=== PATIENT | male | born 1945 | race Caucasian/White ===

== ENCOUNTER 2025-05-30 18:53 | Inpatient (IN) | payer OTHER ==
[~2025-05-30] VITALS: Ht 172.7 cm; Wt 56.2 kg
[2025-05-30 19:16] VITALS: BP 140/86
[2025-05-30 19:22] LABS: MEAN CELL VOLUME 94.5 fl (80.0-94.0); MEAN CORPUSCULAR HGB 28.8 pg (27.0-31.0); MEAN PLATELET VOLUME 8.8 fl (9.6-12.3); NUCLEATED RED BLOOD CELL 0.0 % (0.0-0.0); NUCLEATED RED BLOOD CELL 0.0 10*3/uL (0.0-0.0); PLATELET COUNT AUTOMATED 190 10*3/uL (130-400); RED CELL DISTRI WIDTH 13.7 % (0-14.5)
[2025-05-30 19:23] LABS: MANUAL DIFF REFLEX YES
[2025-05-30 19:45] LABS: PLATELET SUFFICIENCY NORMAL (NORMAL)
[2025-05-30 19:47] LABS: BUN 17 mg/dl (9-23); SGPT/ALT 15 U/L (5-49)
[2025-05-30 19:57] LABS: ETHYL ALCOHOL < 3.0 mg/dl (<3)
[2025-05-30 22:19] LABS: BILIRUBIN Negative (Negative); BLOOD 3+ (Negative); CLARITY Clear (Clear); COLOR Yellow (Yellow); KETONE Negative (Negative); LEUKO ESTERASE Negative (Negative); NITRITE Negative (Negative); PH 6.5 (4.5-8.0); SPECIFIC GRAVITY 1.010 (1.001-1.030); UROBILINOGEN 1.0 E.U./dl (0.0-1.0)
[2025-05-30 22:26] LABS: URINE AMPHETAMINES Negative (1000ng/ml); URINE BARBITURATES Negative (200ng/ml); URINE BENZODIAZEPINES Negative (200ng/ml); URINE CANNABINOIDS (THC) Negative (50ng/ml); URINE COCAINE Negative (300ng/ml); URINE METHADONE Negative (300ng/ml); URINE OPIATES Negative (300ng/ml); URINE PHENCYCLIDINE Negative (25ng/ml)
[2025-05-30 22:37] LABS: BACTERIA TRACE; RBC TNTC rbc/hpf (0-2)
[2025-05-30] MEDS ORDERED: MG-AL HYDROXIDE/SIMETICONE 30 ML UDC PO PRN (22:55)
[2025-05-30] MEDS ORDERED: ACETAMINOPHEN 325 MG TAB PO PRN (22:55)
[2025-05-30] MEDS ORDERED: Menthol/Zinc Oxide 4 GM THIN T PRN (23:15)
[2025-05-30] MEDS ORDERED: FENOFIBRATE145 M1 PO (23:19)
[2025-05-30] MEDS ORDERED: IRON325 M1 PO (23:20)
[2025-05-30] MEDS ORDERED: SIMVASTATIN20 MG PO (23:21)
[2025-05-30] MEDS ORDERED: TAMSULOSIN HCL0.4 MG PO (23:21)
[2025-05-30] MEDS ORDERED: VITAMIN B-1100 M1 PO (23:22)
[2025-05-30] MEDS ORDERED: DEPAKOTE250 MG PO (23:24)
[2025-05-30] MEDS ORDERED: NAMENDA-5 PO (23:24)
[2025-05-30] MEDS ORDERED: REMERON15 M2 PO (23:25)
[2025-05-30] MEDS ORDERED: RISPERDAL1 M1 PO (23:26)
[2025-05-30] MEDS ORDERED: STERILE WATER IM (23:28)
[2025-05-30] MEDS ORDERED: GEODON20 MG/1 ML IM (23:29)
[2025-05-30] MEDS ORDERED: VISTARIL25 MG PO (23:29)
[2025-05-30] MEDS ORDERED: VISTARIL25 MG IM (23:32)
[2025-05-30] MEDS ORDERED: LORazepam 1 MG TAB PO PRN (23:40)
[2025-05-31 06:48] LABS: MEAN CELL VOLUME 93.1 fl (80.0-94.0); MEAN CORPUSCULAR HGB 28.5 pg (27.0-31.0); MEAN PLATELET VOLUME 9.4 fl (9.6-12.3); NUCLEATED RED BLOOD CELL 0.0 % (0.0-0.0); NUCLEATED RED BLOOD CELL 0.0 10*3/uL (0.0-0.0); PLATELET COUNT AUTOMATED 205 10*3/uL (130-400); RED CELL DISTRI WIDTH 13.6 % (0-14.5)
[2025-05-31 06:53] LABS: BUN 14 mg/dl (9-23); LDL CHOLESTEROL 56 mg/dL (9-159); SGPT/ALT 14 U/L (5-49)
[2025-05-31 06:58] LABS: MANUAL DIFF REFLEX YES
[2025-05-31 07:16] LABS: PLATELET SUFFICIENCY NORMAL (NORMAL)
[2025-05-31 08:05] LABS: VITAMIN D, 25-HYDROXY 66.3 ng/mL (30-100)
[2025-05-31] MEDS ORDERED: FERROUS SULFATE 325 MG TAB PO SCH (09:00)
[2025-05-31] MEDS ORDERED: Memantine Hydrochloride 5 MG TAB PO SCH (09:00)
[2025-05-31] MEDS ORDERED: Thiamine 100 MG TAB PO SCH (09:00)
[2025-05-31] MEDS ORDERED: FENOFIBRATE 145 MG TAB PO SCH (09:00)
[2025-05-31] MEDS ORDERED: DIVALPROEX (DR) 250 MG TAB PO SCH (09:00)
[2025-05-31] MEDS ORDERED: risperiDONE 1 MG TAB PO SCH (14:00)
[2025-05-31] MEDS ORDERED: Mirtazapine 15 MG TAB PO SCH (21:00)
[2025-05-31] MEDS ORDERED: SIMVASTATIN 20 MG TAB PO SCH (22:00)
[2025-06-01 23:05] VITALS: BP 124/95
[2025-06-02] MEDS ORDERED: Albuterol Sulf/Ipratropium 3 ML VIAL NEB ONE (02:05)
[2025-06-02 03:01] LABS: MEAN CELL VOLUME 91.1 fl (80.0-94.0); MEAN CORPUSCULAR HGB 28.8 pg (27.0-31.0); MEAN PLATELET VOLUME 9.2 fl (9.6-12.3); NUCLEATED RED BLOOD CELL 0.0 % (0.0-0.0); NUCLEATED RED BLOOD CELL 0.0 10*3/uL (0.0-0.0); PLATELET COUNT AUTOMATED 190 10*3/uL (130-400); RED CELL DISTRI WIDTH 13.4 % (0-14.5)
[2025-06-02 03:12] LABS: MANUAL DIFF REFLEX YES
[2025-06-02 03:19] LABS: BUN 19 mg/dl (9-23)
[2025-06-02 03:37] LABS: PLATELET SUFFICIENCY NORMAL (NORMAL); STOMATOCYTE FEW
[2025-06-02 06:31] VITALS: BP 125/97
[2025-06-02 09:00] LABS: ABG BASE EXCESS 2.6 mmol/L (-2.0-3.0); ABG O2 SATURATION 94.7 % (94.0-98.0); ARTERIAL BLOOD GAS PH 7.448 (7.350-7.450); ARTERIAL BLOOD GAS PO2 68.3 mmHg (83.0-108.0)
== END 2025-06-02 14:10 | disposition short-term general hospital (02) | DRG 885 ==
LOC: ED 18:53 → 3N 21:53
PROVIDERS: Counselor Professional; Internal Medicine; Student in an Organized Health Care Education/Training Program; ADMIT Psychiatry & Neurology Psychiatry; ATTEND Psychiatry & Neurology Psychiatry
PROC: GZHZZZZ Group Psychotherapy (ICD-10-PCS; principal; 2025-05-31)
PROC: GZ56ZZZ Individual Psychotherapy, Supportive (ICD-10-PCS; 2025-05-31)
DX: F23 Brief psychotic disorder (principal); F05 Delirium due to known physiological condition; J18.9 Pneumonia, unspecified organism; F03.B18 Unspecified dementia, moderate, with other behavioral disturbance; D53.9 Nutritional anemia, unspecified; R91.1 Solitary pulmonary nodule; E78.2 Mixed hyperlipidemia; S00.81XA Abrasion of other part of head, initial encounter; N40.0 Benign prostatic hyperplasia without lower urinary tract symptoms; F32.9 Major depressive disorder, single episode, unspecified; F17.210 Nicotine dependence, cigarettes, uncomplicated; Z82.49 Family history of ischemic heart disease and other diseases of the circulatory system; Z79.899 Other long term (current) drug therapy; Z88.8 Allergy status to other drugs, medicaments and biological substances; Z91.09 Other allergy status, other than to drugs and biological substances; Z98.52 Vasectomy status; Z79.01 Long term (current) use of anticoagulants; Z79.2 Long term (current) use of antibiotics; X58.XXXA Exposure to other specified factors, initial encounter; Y93.89 Activity, other specified; Y92.89 Other specified places as the place of occurrence of the external cause; Y99.8 Other external cause status

== ENCOUNTER 2025-06-11 10:30 | Inpatient (IN) | payer OTHER ==
[~2025-06-11] VITALS: Ht 172.7 cm; Wt 49.0 kg
[2025-06-11] VITALS (19 sets, daily range): BP systolic 65–123; BP diastolic 43–70
[~2025-06-11 10:30] MED LIST: AMOX-CLAV 875-1 EACH PO; DEPAKOTE SPRIN125 MG PO; DEPAKOTE250 MG PO; EXELON1 EAC2 TD; FENOFIBRATE145 M1 PO; GEODON20 MG/1 ML IM; IRON325 M1 PO; MUCUS RELIEF E600 MG PO; NAMENDA-5 PO; REMERON15 M2 PO; RISPERDAL1 M1 PO; SIMVASTATIN20 MG PO; STERILE WATER IM; TAMSULOSIN HCL0.4 MG PO; VISTARIL25 MG IM; VISTARIL25 MG PO; VITAMIN B-1100 M1 PO; ZITHROMAX250 MG PO
[2025-06-11] MEDS ORDERED: Acetaminophen/Hydrocodone 5 MG/325 MG TABLET PO PRN (10:40)
[2025-06-11] MEDS ORDERED: Ondansetron Hydrochloride 4 MG/2 ML VIAL IV PRN (10:40)
[2025-06-11] MEDS ORDERED: diazePAM 10 MG/2 ML SYR IV ONE (10:40)
[2025-06-11] MEDS ORDERED: ACETAMINOPHEN 325 MG TAB PO PRN (10:40)
[2025-06-11] MEDS ORDERED: LEVETIRACETAM IN NACL (ISO-OS) 100 ML IV ONE ×2 (10:40→11:10)
[2025-06-11] MEDS ORDERED: SODIUM CHLORIDE 0.9% 1,000 ML IV ONE ×3 (10:45→12:40)
[2025-06-11] MEDS ORDERED: diazePAM 10 MG/2 ML SYR IV PRN (10:45)
[2025-06-11] MEDS ORDERED: MIDAZOLAM HCL IN 0.9 % NACL/PF 50 ML IV SCH (11:10)
[2025-06-11] MEDS ORDERED: NOREPINEPHRINE BITARTRATE/D5W 250 ML IV SCH (11:15)
[2025-06-11] MEDS ORDERED: Albuterol Sulf/Ipratropium 3 ML VIAL NEB SCH (11:15)
[2025-06-11] MEDS ORDERED: PROPOFOL 50 ML IV SCH (11:25)
[2025-06-11] MEDS ORDERED: NOREPINEPHRINE BITARTRATE/D5W 250 ML IV ONE (11:37)
[2025-06-11] MEDS ORDERED: IOHEXOL 350 MG/ML 100 ML VIAL IV ONE (12:05)
[2025-06-11] MEDS ORDERED: SODIUM CHLORIDE 0.9% 100 ML BAG IV ONE (12:05)
[2025-06-11 13:58] LABS: ABG O2 SATURATION 99.7 % (94.0-98.0)
[2025-06-11 14:01] LABS: ABG BASE EXCESS -1.8 mmol/L (-2.0-3.0); ARTERIAL BLOOD GAS PH 7.271 (7.350-7.450)
[2025-06-11 14:05] LABS: ARTERIAL BLOOD GAS PO2 440.9 mmHg (83.0-108.0)
[2025-06-12] MEDS ORDERED: LEVETIRACETAM IN NACL (ISO-OS) 100 ML IV SCH (10:00)
== END 2025-06-11 16:00 | disposition short-term general hospital (02) | DRG 208 ==
LOC: ICCU 10:30 → 4E 10:30 → ICCU 11:05
PROVIDERS: Student in an Organized Health Care Education/Training Program; ADMIT Internal Medicine; ATTEND Internal Medicine
PROC: 0BH17EZ Insertion of Endotracheal Airway into Trachea, Via Natural or Artificial Opening (ICD-10-PCS; principal; 2025-06-11)
PROC: 5A1935Z Respiratory Ventilation, Less than 24 Consecutive Hours (ICD-10-PCS; 2025-06-11)
PROC: 02HV33Z Insertion of Infusion Device into Superior Vena Cava, Percutaneous Approach (ICD-10-PCS; 2025-06-11)
PROC: B548ZZA Ultrasonography of Superior Vena Cava, Guidance (ICD-10-PCS; 2025-06-11)
DX: J96.01 Acute respiratory failure with hypoxia (principal); G93.41 Metabolic encephalopathy; F23 Brief psychotic disorder; E44.0 Moderate protein-calorie malnutrition; Z68.1 Body mass index [BMI] 19.9 or less, adult; G40.901 Epilepsy, unspecified, not intractable, with status epilepticus; T68.XXXA Hypothermia, initial encounter; E78.5 Hyperlipidemia, unspecified; F03.90 Unspecified dementia, unspecified severity, without behavioral disturbance, psychotic disturbance, mood disturbance, and anxiety; N40.0 Benign prostatic hyperplasia without lower urinary tract symptoms; I95.9 Hypotension, unspecified; D64.9 Anemia, unspecified; R73.9 Hyperglycemia, unspecified; F32.9 Major depressive disorder, single episode, unspecified; Z88.8 Allergy status to other drugs, medicaments and biological substances; Y92.89 Other specified places as the place of occurrence of the external cause